=== PATIENT | male | born 1980 | race Two or more races ===

== ENCOUNTER 2023-02-02 16:02 | Inpatient (IN) | payer OTHER ==
[2023-02-02] MEDS ORDERED: hydrOXYzine PAMOATE 25 MG CAPSULE (FP) PO PRN (18:28)
[2023-02-02] MEDS ORDERED: LOPERAMIDE HCL 2 MG CAPSULE PO PRN (18:28)
[2023-02-02] MEDS ORDERED: POLYETHYLENE GLYCOL (HEALTHYLAX) 3350 17 GM PACKET PO PRN (18:28)
[2023-02-02] MEDS ORDERED: NALOXONE HCL (KLOXXADO) 8 MG SPRAY NS PRN (18:28)
[2023-02-02] MEDS ORDERED: BISMUTH SUBSALICYLATE 524 MG/30 ML PO PRN (18:28)
[2023-02-02] MEDS ORDERED: NALOXONE HCL 0.4 MG/ML VIAL IM PRN (18:28)
[2023-02-02] MEDS ORDERED: ONDANSETRON *ODT* 4 MG TABLET SL PRN (18:28)
[2023-02-02] MEDS ORDERED: BENZOCAINE/MENTHOL (CHLORASEPTIC ) LOZENGE MM PRN (18:28)
[2023-02-02] MEDS ORDERED: BENZONATATE 200 MG CAPSULE PO PRN (18:28)
[2023-02-02] MEDS ORDERED: guaiFENesin 600 MG TABLET.ER (FP) PO PRN (18:28)
[2023-02-02] MEDS ORDERED: NICOTINE POLACRILEX 2 MG GUM BUC PRN (18:28)
[2023-02-02] MEDS ORDERED: IBUPROFEN 400 MG TABLET (FP) PO PRN (18:28)
[2023-02-02] MEDS ORDERED: ACETAMINOPHEN 325 MG TABLET (FP) PO PRN (18:28)
[2023-02-02] MEDS ORDERED: DICYCLOMINE HCL 10 MG CAPSULE PO PRN (18:28)
[2023-02-02] MEDS ORDERED: MAG HYDROX/AL HYDROX/SIMETH 30 ML UNIT-DOSE CUP PO PRN (18:28)
[2023-02-02] MEDS ORDERED: P-EPHED 60MG/TRIPROLIDI 2.5MG TABLET PO PRN (18:28)
[2023-02-02] MEDS ORDERED: MAGNESIUM HYDROX 2400MG/30ML ORAL SUSPENSION 30 ML CUP PO PRN (18:28)
[2023-02-02] MEDS: diazePAM 5 MG TABLET PO PRN (18:57)
[2023-02-02] MEDS: MELATONIN 5 MG TABLETS PO SCH (23:08)
[2023-02-02] MEDS: THIAMINE HCL 100 MG TABLET (FP) PO SCH (23:08)
[2023-02-03] MEDS: diazePAM 5 MG TABLET PO PRN ×2 (09:13→14:14)
[2023-02-03] MEDS: IBUPROFEN 600 MG TABLET (FP) PO PRN ×3 (09:14→19:50)
[2023-02-03] MEDS: METHOCARBAMOL 500 MG TABLET PO PRN ×2 (09:14→14:14)
[2023-02-03] MEDS: PRENATAL VITAMINS W/ FOLIC ACID TABLET (FP) PO SCH (09:19)
[2023-02-03] MEDS ORDERED: methaDONE HCL 10 MG TABLET (FOR DETOX USE ONLY) PO ONE (10:00)
[2023-02-03] MEDS: amLODIPine BESYLATE 2.5 MG TABLET (FP) PO SCH (10:14)
[2023-02-03 13:31] LABS: HEMATOCRIT 39.8 % (35.4-49); HEMOGLOBIN 13.3 GM/dL (11.7-16.9); MCH 28.9 pg (25.7-33.7); MCHC 33.5 g/dl (32.0-35.9); MEAN CELL VOLUME 86.3 fl (80-96); MEAN PLT VOLUME 8.8 fl (7.5-11.1); PLATELET COUNT 472 10^3/uL (134-434); RBC 4.61 M/mm3 (4.00-5.60); RDW 13.9 % (11.9-15.9)
[2023-02-03 13:47] LABS: CHLORIDE 103 mmol/L (98-107); POTASSIUM 3.8 mmol/L (3.5-5.1); SODIUM 137 mmol/L (136-145)
[2023-02-03 13:58] LABS: CALCIUM 8.7 mg/dL (8.5-10.1)
[2023-02-03 13:59] LABS: ANION GAP 11 mmol/L (4-13); CO2 23 mmol/L (21-32); GLUCOSE,RANDOM 125 mg/dL (74-106)
[2023-02-03 14:00] LABS: SGPT/ALT 49 U/L (13-61)
[2023-02-03 14:01] LABS: CREATININE 0.8 mg/dL (0.55-1.3); SGOT/AST 51 U/L (15-37)
[2023-02-03 14:02] LABS: BILIRUBIN,TOTAL 0.4 mg/dL (0.2-1); BLOOD UREA NITROGEN 19.6 mg/dL (7-18); TOT PROT 7.4 g/dl (6.4-8.2)
[2023-02-03 14:04] LABS: ALK PHOS 109 U/L (45-117)
[2023-02-03] MEDS: cloNIDine HCL 0.1 MG TABLET PO PRN ×2 (14:14→23:00)
[2023-02-03] MEDS: THIAMINE HCL 100 MG TABLET (FP) PO SCH (23:00)
[2023-02-03] MEDS: MELATONIN 5 MG TABLETS PO SCH (23:01)
[2023-02-04 09:29] VITALS: RESP 18; TEMP 97.8
[2023-02-04] MEDS: amLODIPine BESYLATE 2.5 MG TABLET (FP) PO SCH (09:49)
[2023-02-04] MEDS: METHOCARBAMOL 500 MG TABLET PO PRN (09:49)
[2023-02-04] MEDS: diazePAM 5 MG TABLET PO PRN (09:53)
[2023-02-04] MEDS: PRENATAL VITAMINS W/ FOLIC ACID TABLET (FP) PO SCH (09:57)
[2023-02-04] MEDS ORDERED: amLODIPine BESYLATE 5 MG TABLET (FP) PO SCH (10:00)
[2023-02-04] MEDS ORDERED: methaDONE HCL 10 MG TABLET (FOR DETOX USE ONLY) PO ONE (10:00)
[2023-02-04 12:55] VITALS: BP 149/86; PULSE 65
[2023-02-05] MEDS ORDERED: methaDONE HCL 10 MG TABLET (FOR DETOX USE ONLY) PO ONE (10:00)
[2023-02-05] MEDS ORDERED: amLODIPine BESYLATE 5 MG TABLET (FP) PO SCH (10:00)
[2023-02-06] MEDS ORDERED: methaDONE HCL 10 MG TABLET (FOR DETOX USE ONLY) PO ONE (10:00)
[2023-02-07] MEDS ORDERED: methaDONE HCL 10 MG TABLET (FOR DETOX USE ONLY) PO ONE (10:00)
== END 2023-02-04 15:08 | disposition left against medical advice (07) | DRG 770 ==
LOC: YASAS 16:02 → Y6N 18:22
PROVIDERS: ADMIT Allergy & Immunology; ATTEND Surgery
PROC: HZ2ZZZZ Detoxification Services for Substance Abuse Treatment (ICD-10-PCS; principal; 2023-02-02)
DX: F11.23 Opioid dependence with withdrawal (principal); F10.20 Alcohol dependence, uncomplicated; F14.20 Cocaine dependence, uncomplicated; F17.213 Nicotine dependence, cigarettes, with withdrawal; F19.24 Other psychoactive substance dependence with psychoactive substance-induced mood disorder; D72.829 Elevated white blood cell count, unspecified; B18.2 Chronic viral hepatitis C; R45.851 Suicidal ideations; R73.9 Hyperglycemia, unspecified
CPT/HCPCS: 36415; 80053; 80307; 85027; 86780; 87635; 93005; 93010

== ENCOUNTER 2023-12-07 18:12 | Inpatient (IN) | payer OTHER ==
[2023-12-07 19:21] VITALS: BMI 21.3
[2023-12-07] MEDS ORDERED: IBUPROFEN 400 MG TABLET (FP) PO PRN (21:07)
[2023-12-07] MEDS ORDERED: NALOXONE (NARCAN) HCL 4 MG/0.1 ML SPRAY NS PRN (21:07)
[2023-12-07] MEDS ORDERED: MAG HYDROX/AL HYDROX/SIMETH 30 ML UNIT-DOSE CUP PO PRN (21:07)
[2023-12-07] MEDS ORDERED: BENZOCAINE/MENTHOL (CHLORASEPTIC ) LOZENGE MM PRN (21:07)
[2023-12-07] MEDS ORDERED: LOPERAMIDE HCL 2 MG CAPSULE PO PRN (21:07)
[2023-12-07] MEDS ORDERED: guaiFENesin 600 MG TABLET.ER (FP) PO PRN (21:07)
[2023-12-07] MEDS ORDERED: DICYCLOMINE HCL 10 MG CAPSULE PO PRN (21:07)
[2023-12-07] MEDS ORDERED: BISMUTH SUBSALICYLATE 524 MG/30 ML PO PRN (21:07)
[2023-12-07] MEDS ORDERED: BENZONATATE 200 MG CAPSULE PO PRN (21:07)
[2023-12-07] MEDS ORDERED: ACETAMINOPHEN 325 MG TABLET (FP) PO PRN (21:07)
[2023-12-07] MEDS ORDERED: MAGNESIUM HYDROX 2400MG/30ML ORAL SUSPENSION 30 ML CUP PO PRN (21:07)
[2023-12-07] MEDS ORDERED: POLYETHYLENE GLYCOL (HEALTHYLAX) 3350 17 GM PACKET PO PRN (21:07)
[2023-12-07] MEDS ORDERED: NICOTINE POLACRILEX 4 MG GUM BUC PRN (21:07)
[2023-12-07] MEDS ORDERED: IBUPROFEN 600 MG TABLET (FP) PO PRN (21:07)
[2023-12-07] MEDS ORDERED: methaDONE HCL 10 MG TABLET (FOR DETOX USE ONLY) ONE (21:52)
[2023-12-07] MEDS ORDERED: TRIMETHOBENZAMIDE HCL 200MG/2ML INJ IM ONE (21:52)
[2023-12-07] MEDS: methaDONE HCL 10 MG TABLET (FOR DETOX USE ONLY) PO ONE (22:06)
[2023-12-07] MEDS: TRIMETHOBENZAMIDE HCL 200MG/2ML INJ IM ONE (22:07)
[2023-12-08] MEDS: diazePAM 5 MG TABLET PO SCH (07:05)
[2023-12-08] MEDS: diazePAM 5 MG TABLET PO PRN (07:09)
[2023-12-08] MEDS: ONDANSETRON *ODT* 4 MG TABLET SL PRN (07:10)
[2023-12-08] MEDS: PRENATAL VITAMINS W/ FOLIC ACID TABLET (FP) PO SCH (10:53)
[2023-12-08] MEDS: NICOTINE 14 MG/24 HOURS TOPICAL PATCH TD SCH (10:56)
[2023-12-08 14:51] LABS: HEMATOCRIT 37.4 % (35.4-49); MCH 26.1 pg (25.7-33.7); MCHC 32.1 g/dl (32.0-35.9); MEAN CELL VOLUME 81.2 fl (80-96); PLATELET COUNT 385 10^3/uL (134-434); RBC 4.61 M/mm3 (4.00-5.60); RDW 15.9 % (11.9-15.9); WHITE BLOOD COUNT 15.9 K/mm3 (4.0-10.0)
[2023-12-08 15:10] LABS: CHLORIDE 102 mmol/L (98-107); POTASSIUM 3.7 mmol/L (3.5-5.1); SODIUM 137 mmol/L (136-145)
[2023-12-08 15:59] LABS: CALCIUM 9.8 mg/dL (8.5-10.1)
[2023-12-08 16:00] LABS: ALBUMIN 3.4 g/dl (3.4-5.0); ANION GAP 8 mmol/L (4-13); BLOOD UREA NITROGEN 17.6 mg/dL (7-18); CO2 27 mmol/L (21-32); GLUCOSE,RANDOM 112 mg/dL (74-106)
[2023-12-08 16:03] LABS: CREATININE 0.7 mg/dL (0.55-1.3)
[2023-12-08 16:04] LABS: SGOT/AST 39 U/L (15-37); SGPT/ALT 40 U/L (13-61)
[2023-12-08 16:05] LABS: BILIRUBIN,TOTAL 0.5 mg/dL (0.2-1)
[2023-12-08 16:06] LABS: ALK PHOS 140 U/L (45-117)
[2023-12-08] MEDS: cloNIDine HCL 0.1 MG TABLET PO PRN (17:51)
[2023-12-08] MEDS: THIAMINE 100 MG TABLET PO SCH (21:42)
[2023-12-08] MEDS: MELATONIN 5 MG TABLETS PO SCH (22:32)
[2023-12-09] MEDS: diazePAM 5 MG TABLET PO SCH (05:22)
[2023-12-09] MEDS: methaDONE HCL 10 MG TABLET (FOR DETOX USE ONLY) PO ONE (10:02)
[2023-12-09 21:19] VITALS: RESP 16
[2023-12-10] MEDS: diazePAM 5 MG TABLET PO ONE (05:29)
[2023-12-10] MEDS: hydrOXYzine PAMOATE 25 MG CAPSULE (FP) PO PRN (06:08)
[2023-12-10] MEDS: amLODIPine BESYLATE 5 MG TABLET (FP) PO SCH (09:22)
[2023-12-10] MEDS: METHOCARBAMOL 500 MG TABLET PO PRN (09:22)
[2023-12-10 09:35] VITALS: BP 157/80; PULSE 61; TEMP 97.3
[2023-12-10] MEDS: NALOXONE (NYS OPIOID OVERDOSE PROGRAM) 4 MG/0.1 ML SPRAY NS PRN (11:40)
[2023-12-10 12:01] LABS: BASO % 0.2 % (0-2.0); EOS % 0.7 % (0-4.5); HEMOGLOBIN 12.5 GM/dL (11.7-16.9); LYMPH % 11.9 % (8-40); MCH 26.3 pg (25.7-33.7); MEAN CELL VOLUME 79.9 fl (80-96); MEAN PLT VOLUME 8.4 fl (7.5-11.1); MONO % 8.9 % (3.8-10.2); NEUT % 78.3 % (42.8-82.8); PLATELET COUNT 453 10^3/uL (134-434); RBC 4.75 M/mm3 (4.00-5.60); RDW 15.8 % (11.9-15.9); WHITE BLOOD COUNT 16.2 K/mm3 (4.0-10.0)
[2023-12-11] MEDS ORDERED: methaDONE HCL 10 MG TABLET (FOR DETOX USE ONLY) PO ONE (10:00)
== END 2023-12-10 11:41 | disposition left against medical advice (07) | DRG 770 ==
LOC: YASAS 18:12 → Y6N 22:44
PROVIDERS: ADMIT Allergy & Immunology; ATTEND Surgery
PROC: HZ2ZZZZ Detoxification Services for Substance Abuse Treatment (ICD-10-PCS; principal; 2023-12-07)
DX: F11.23 Opioid dependence with withdrawal (principal); F10.230 Alcohol dependence with withdrawal, uncomplicated; F17.213 Nicotine dependence, cigarettes, with withdrawal; F19.24 Other psychoactive substance dependence with psychoactive substance-induced mood disorder; D72.829 Elevated white blood cell count, unspecified; R45.89 Other symptoms and signs involving emotional state; Z59.00 Homelessness unspecified
CPT/HCPCS: 36415; 80053; 80305; 80307; 85025; 85027; 86780; Q0162